=== PATIENT | female | born 1970 | race Two or more races ===

== ENCOUNTER → 2016-08-12 | Outpatient (CLI) | payer BC ==
[2016-08-12 16:03] LABS: Prolactin 9.6 ng/mL (3.0-18.6)
[2016-08-12 17:35] LABS: ACTH 19.9 pg/mL (0.00-45.99)
== END | disposition home or self-care (01) ==
LOC: LABWHC1 09:04
PROVIDERS: ATTEND Internal Medicine Endocrinology, Diabetes & Metabolism
DX: R53.83 Other fatigue (principal)
CPT/HCPCS: 36415; 82024; 82533; 84146; 84439; 84443; 84480